=== PATIENT | male | born 1950 | race Caucasian/White ===

== ENCOUNTER 2022-04-21 09:46 | Outpatient (REF) | payer MEDICARE, BC, SELFPAY ==
--- NOTE | 2022-04-21 15:25 | MHC.AU.ANO ---
Adult Audiological Evaluation Date of Visit: 04/21/22 Reason for Appointment: Patient has been noticing gradually increasing hearing difficulty over the last several years. He finds that if someone is talking to him from a distance or another room, he cannot hear what they are saying. He has noticed that he cannot hear certain soft high-pitched sounds, such as the car blinker. 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 Does patient feel they have a hearing loss?: Yes If Yes, Which Ear?: Both Ears Hearing Handicap Inventory: HHIE SCORE: 14 Based on HHIE score, patient has: Mild to moderate perceived hearing handicap Ear History: Ear Deformity: None Reported Recent Ear Drainage: None Reported Recent Ear Pain: None Reported Family History of Hearing Loss?: Yes: Mother Recent Ear Infections: None Reported Ear Infections in Childhood: None Reported History of Ear Wax Buildup: Both Ears Previous Ear Surgery: None Reported Bothersome Tinnitus/Ringing/Noises in Ears: None Reported Ear used on the phone: Both Ears Blocked/Full Sensation in Ear(s): None Reported History of occupational noise exposure?: Yes History: No Medical History: Medical History: History of shoulder and knee procedures Otoscopy: Right Ear: Unremarkable Left Ear: Partially occluded with cerumen Tympanometry: Tympanometry performed due to: To assess integrity of the middle ear system Right Ear: Normal Middle Ear System (Type A) Left Ear: Normal Middle Ear System (Type A) Hearing Evaluation: Transducer(s) Used: Insert Earphones Method: Conventional Audiometry Stimuli Used: Pure Tones Right Ear: Description of Hearing: Normal from 250-1500 Hz, sloping to moderate/moderately-severe sensorineural hearing loss Left Ear: Description of Hearing: Normal from 250-1500 Hz, sloping to moderate/moderately-severe sensorineural hearing loss Speech Recognition Threshold (SRT): Method Used: Recorded Lists Stimuli Used: Spondee Words Right Ear: 25 dBHL Left Ear: 20 dBHL Word Discrimination: Method: Recorded Lists Word Lists Used: W-22 Right Ear: 88% at 65 dBHL Left Ear: 100% at 60 dBHL Most Comfortable Level (MCL): Right Ear: 65 dBHL Left Ear: 60 dBHL QuickSIN: 1 dB SNR loss, which suggests a normal level of difficulty listening in noise Recommendations: Audiological re-evaluation in 1-2 years, or sooner if changes are noted. Patient feels he hears adequately in most day-to-day situations. Hearing aids may not be warranted at this time. Diagnosis: Primary Diagnosis: H90.3 Bilateral Sensorineural Hearing Loss Signature: Provider: Elizabeth Umanzor, CCC-A
== END 2022-04-21 09:47 | disposition home or self-care (01) ==
LOC: HO.SH 09:46
PROVIDERS: Visit Provider Internal Medicine
DX: Z01.118 Encounter for examination of ears and hearing with other abnormal findings (principal); H90.3 Sensorineural hearing loss, bilateral
CPT/HCPCS: 92557; 92567